=== PATIENT | female | born 1980 | race Two or more races ===

== ENCOUNTER 2020-03-07 07:38 | Emergency (ER) | payer SELFPAY ==
[~2020-03-07] VITALS: Ht 165.1 cm; Wt 84.0 kg
[2020-03-07 07:53] VITALS: BP 144/103
[2020-03-07] MEDS ORDERED: ACETAMINOPHEN 325MG TABLET PO STA (08:20)
[2020-03-07] MEDS ORDERED: IBUPROFEN 600MG TABLET PO ONE (10:30)
== END 2020-03-07 10:35 | disposition home or self-care (01) ==
LOC: ER 07:38
DX: S39.82XA Other specified injuries of lower back, initial encounter (principal); F32.9 Major depressive disorder, single episode, unspecified; R07.81 Pleurodynia; M54.2 Cervicalgia; Y08.89XA Assault by other specified means, initial encounter; Y93.9 Activity, unspecified; Y92.9 Unspecified place or not applicable
CPT/HCPCS: 71045; 72040; 72100; 81025; 99284